=== PATIENT | male | born 1965 | race Two or more races ===

== ENCOUNTER → 2017-01-20 | Outpatient (REF) | payer BC | LOC: M SMT 12:41 | PROVIDERS: ATTEND Nurse Practitioner Family | DX: R31.0 Gross hematuria (principal) ==

== ENCOUNTER → 2017-02-02 | Outpatient (CLI) | payer BC ==
[~2017-02-02] MED LIST: ISOVUE-370 76% 100ML VIAL (Q9967) As Ordered ONE
--- NOTE | 2017-02-03 04:04 | REP ---
Clinical: Gross hematuria. Technique: Axial precontrast, contrast enhanced, and delayed images of the abdomen and pelvis using 100 ml Isovue 370 intravenous contrast material with coronal and sagittal re-formations. Findings: Evaluation of the urinary tract system demonstrates a 1.9 cm simple upper pole right renal cyst. There is no evidence for nephroureterolithiasis, hydroureteronephrosis, perinephric stranding, or obvious urinary tract mass lesion. Enhanced and delayed images demonstrate symmetric renal enhancement and excretion into the collecting system, respectively. Fatty infiltration to the liver noted without focal hepatic lesion. Spleen, pancreas, gallbladder, bilateral adrenal glands are normal. The enteric system is without obstruction or acute inflammatory process. Sigmoid diverticula noted without acute diverticulitis. Normal terminal ileum and appendix identified in the right lower quadrant. Pelvis demonstrates normal bladder and age appropriate prostate/seminal vesicles. No ascites. No adenopathy. No free air. The vasculature is normal. Surrounding musculoskeletal structures are intact without focal osseous abnormality. Impression: 1. 1.9 cm simple right upper pole renal cyst. Urinary tract system is otherwise normal. 2. Sigmoid diverticula without acute diverticulitis. 3. No further acute abdominopelvic pathology appreciated Signed by Abhijit Lopez MD 02/03/2017 03:55 A
== END ==
LOC: M RAD 15:52
PROVIDERS: ATTEND Nurse Practitioner Family
DX: R31.0 Gross hematuria (principal); N28.1 Cyst of kidney, acquired; K57.30 Diverticulosis of large intestine without perforation or abscess without bleeding
CPT/HCPCS: 74178; Q9967

== ENCOUNTER → 2017-03-24 | Outpatient (CLI) | payer BC ==
[~2017-03-24] MED LIST changes: +HYDR12CA PO; -ISOVUE-370 76% 100ML VIAL (Q9967) As Ordered ONE; +LISI-538 PO
--- NOTE | 2017-03-25 02:59 | REP ---
Clinical: Preoperative assessment . Bladder cancer. Comparison: 07/30/2011 . Technique: PA and lateral. Findings: The mediastinum and cardiac silhouette are normal. Airway is patent and midline. The lung myles are clear and without acute consolidation, effusion, or pneumothorax. The skeletal structures are intact and normal. Impression: 1. No acute cardiopulmonary process. Signed by Abhijit Lopez MD 03/25/2017 02:50 A
== END ==
LOC: M SMT 13:07
PROVIDERS: ATTEND Urology
DX: Z01.818 Encounter for other preprocedural examination (principal); D49.4 Neoplasm of unspecified behavior of bladder

== ENCOUNTER → 2017-04-01 | Outpatient (CLI) | payer BC ==
--- NOTE | 2017-04-01 17:23 | REP ---
REASON: History of bladder carcinoma. COMPARISON 03/24/2017. There is no significant change from the prior exam. The lung myles are hypo expanded causing crowding of the basilar vascularity. No acute patchy parenchymal opacities or pleural effusions have developed. The heart is not enlarged. The osseous structures are stable and intact. IMPRESSION: No evidence of significant change or acute cardiopulmonary disease as described above. Signed by Mike Mccarthy DO 04/01/2017 05:46 P
[2017-04-01 17:36] LABS: MEAN CORPUSCULAR HEMOGLOBIN 30.8 pg (27.0-33.0); MEAN CORPUSCULAR HGB CONC 34.9 g/dl (32.0-36.5); MEAN CORPUSCULAR VOLUME 88.3 fl (80.0-96.0); WHITE BLOOD COUNT 8.5 K/mm3 (4.0-10.0)
[2017-04-01 17:46] LABS: INR 0.99
[2017-04-01 19:45] LABS: ANION GAP 10 MEQ/L (8-16); BLOOD UREA NITROGEN 16 MG/DL (7-18); CALCIUM LEVEL 8.9 MG/DL (8.5-10.1); CARBON DIOXIDE LEVEL 28 MEQ/L (21-32); CHLORIDE LEVEL 103 MEQ/L (98-107); CREATININE FOR GFR 0.97 MG/DL (0.70-1.30); GLOMERULAR FILTRATION RATE > 60.0 (>56); GLUCOSE, FASTING 127 MG/DL (70-105); POTASSIUM SERUM 3.9 MEQ/L (3.5-5.1); SODIUM LEVEL 141 MEQ/L (136-145)
== END ==
LOC: M SMT 14:57
PROVIDERS: ATTEND Urology
DX: D49.4 Neoplasm of unspecified behavior of bladder (principal); Z01.818 Encounter for other preprocedural examination; N39.0 Urinary tract infection, site not specified; Z85.51 Personal history of malignant neoplasm of bladder

== ENCOUNTER 2017-04-08 09:12 | Day surgery (SDC) | payer BC ==
[~2017-04-08] VITALS: Ht 170.2 cm; Wt 122.5 kg
[2017-04-08] MEDS ORDERED: LR 1,000 ML IV ONE (09:45)
[2017-04-08] MEDS ORDERED: LevoFLOXacin IV 500 MG in APPROPRIATE DILUENT 1 EA IV ONE (09:45)
[2017-04-08] MEDS ORDERED: ONDANSETRON 4MG/2ML VIAL (J2405) As Ordered ONE (10:17)
[2017-04-08] MEDS ORDERED: PROPOFOL 200 MG/20 ML VIAL As Ordered ONE (10:17)
[2017-04-08] MEDS ORDERED: LIDOCAINE 2% INJ 100 MG/5 ML SDV (FOR ANES.) As Ordered ONE (10:17)
[2017-04-08] MEDS ORDERED: fentaNYL 100 MCG/2 ML INJECTION (J3010) As Ordered ONE (10:17)
[2017-04-08] MEDS ORDERED: MIDAZOLAM INJ 2 MG/2 ML VIAL (J2250) As Ordered ONE (10:17)
[2017-04-08] MEDS ORDERED: fentaNYL 100 MCG/2 ML INJECTION (J3010) IV PRN (12:30)
[2017-04-08] MEDS ORDERED: ONDANSETRON 4MG/2ML VIAL (J2405) IV PRN (12:30)
[2017-04-08] MEDS ORDERED: LR 1,000 ML IV SCH (12:30)
[2017-04-08] MEDS ORDERED: PERCOCET 5MG/325MG TAB PO PRN (12:30)
[2017-04-08] MEDS ORDERED: ACETAMINOPHEN TAB 650MG DOSE (2X325MG) PO PRN (12:45)
[2017-04-08 13:40] VITALS: BP 141/94
--- NOTE | 2017-04-10 09:45 | RO ---
DATE OF PROCEDURE: 04/08/2017 PREPROCEDURE DIAGNOSIS: Prostatic urethral mass. POSTPROCEDURE DIAGNOSIS: Prostatic urethral mass. PROCEDURE: Cystoscopy, transurethral resection of the prostatic ureteral mass. SURGEON: Dr. Armen Ibarra. [employer]NS[employer]: None. ANESTHESIA: General. OPERATIVE INDICATIONS: This is a 51-year-old male who was found to have a papillary-appearing lesion growing on the stalk on office cystoscopy. This was growing within his prostatic urethra. It was recommended he brought to the operating room today for the above listed procedure. DESCRIPTION OF PROCEDURE: The patient was brought to the operating room and general anesthesia was induced. Prophylactic antibiotics were infused. He was then placed in the dorsal lithotomy position and prepped and draped in the usual sterile fashion. The cystoscope was inserted through the urethral meatus and advanced to the bladder. Once this was in the bladder, it was examined and the bladder looked normal. Within the prostatic urethra, the papillary mass was seen growing around the stalk at 1-o'clock position. We then utilized the resectoscope to resect the lesion completely and that was removed from the bladder to be sent off for pathology. We then utilized the coagulation current to cauterize the area of resection until there was excellent hemostasis. The bladder was emptied of all fluid and this marked the conclusion of the procedure. The patient was then taken out of the dorsal lithotomy position, awakened from anesthesia and transported to the recovery room in stable condition. ESTIMATED BLOOD LOSS: 300 mL COMPLICATIONS: None. SPECIMENS: Prostatic urethral mass. PLAN: The patient will followup in the clinic next week for pathology results. TOÑO
== END 2017-04-08 13:40 | disposition home or self-care (01) ==
LOC: M SDC 09:12
PROVIDERS: ATTEND Urology
DX: N32.9 Bladder disorder, unspecified (principal); I10 Essential (primary) hypertension; Z88.0 Allergy status to penicillin; Z79.899 Other long term (current) drug therapy; E66.9 Obesity, unspecified
CPT/HCPCS: 52224; 88305; J1956; J2250; J2405; J3010

== ENCOUNTER → 2017-05-05 | Outpatient (REF) | payer BC | LOC: M SMT 15:16 | PROVIDERS: ATTEND Urology | DX: R30.0 Dysuria (principal) ==

== ENCOUNTER → 2019-10-25 | Outpatient (REF) | LOC: M LAB 09:52 | PROVIDERS: ATTEND Nurse Practitioner Adult Health | DX: Z02.89 Encounter for other administrative examinations (principal) ==

== ENCOUNTER → 2020-10-01 | Outpatient (CLI) | payer OTHER ==
[~2020-10-01] MED LIST changes: -LISI-538 PO; +LISI20TA33 PO
--- NOTE | 2020-10-01 13:38 | REP ---
INDICATION: LEFT KNEE PAIN. COMPARISON: None. TECHNIQUE: AP, lateral, tunnel and sunrise views of the left knee. FINDINGS: Moderate/early advanced tricompartmental osteoarthritic degenerative changes are appreciated primarily involving the medial compartment. Findings include periarticular sclerosis, joint space narrowing, and osteophytosis. No evidence for acute or healed injury. No obvious effusion. IMPRESSION: Moderate/early advanced tricompartmental arthritic changes primarily involving the medial compartment. <Electronically signed by Abhijit Lopez > 10/01/20 [id number]
== END ==
LOC: M SOG 08:10
PROVIDERS: ATTEND Orthopaedic Surgery Sports Medicine
DX: M23.332 Other meniscus derangements, other medial meniscus, left knee (principal); M17.12 Unilateral primary osteoarthritis, left knee

== ENCOUNTER 2020-12-15 17:24 | Emergency (ER) | payer OTHER, MEDICAID ==
[~2020-12-15] VITALS: Ht 170.2 cm; Wt 135.5 kg
[2020-12-15] MEDS ORDERED: ATOR1TAB21 PO (17:35)
[2020-12-15] MEDS ORDERED: METF-838 PO (17:35)
[2020-12-15] MEDS ORDERED: CIPR250T3 PO (17:35)
[2020-12-15 18:10] LABS: HEMATOCRIT 44.8 % (42.0-52.0); HEMOGLOBIN 15.5 g/dl (13.5-17.5); MEAN CORPUSCULAR HEMOGLOBIN 30.6 pg (27.0-33.0); MEAN CORPUSCULAR HGB CONC 34.6 g/dl (32.0-36.5); MEAN CORPUSCULAR VOLUME 88.4 fl (80.0-96.0); PLATELET COUNT, AUTOMATED 220 10^3/uL (150-450); RED BLOOD COUNT 5.07 10^6/uL (4.30-6.10)
[2020-12-15] MEDS ORDERED: NS 1,000 ML IV ONE (18:10)
[2020-12-15 18:23] LABS: WHITE BLOOD COUNT 12.8 10^3/uL (4.0-10.0)
[2020-12-15 18:25] LABS: ATYPICAL LYMPH 4 % (0-5); BASOPHILS 1 % (0-1); EOSINOPHILS 1 % (0-3); LYMPHOCYTES 11 % (16-44); MONOCYTES 13 % (0-5); NEUTROPHILS 70 % (28-66); PLATELET CLUMPS SMALL AMT; PLATELET ESTIMATE NORMAL (NORMAL)
[2020-12-15 18:37] LABS: BILIRUBIN,DIRECT 0.2 MG/DL (0.0-0.2); BILIRUBIN,TOTAL 0.6 MG/DL (0.2-1.0); TOTAL PROTEIN 7.5 GM/DL (6.4-8.2)
[2020-12-15 18:42] LABS: APPEARANCE, URINE CLEAR (CLEAR); BACTERIA, URINE AUTO NEGATIVE (NEGATIVE); BILIRUBIN, URINE AUTO NEGATIVE (NEGATIVE); BLOOD, URINE BLOOD 1+ (NEGATIVE); COLOR, URINE YELLOW (YELLOW); GLUCOSE, URINE (UA) AUTO NEGATIVE (NEGATIVE); KETONE, URINE AUTO NEGATIVE (NEGATIVE); LEUKOCYTE ESTERASE, URINE AUTO NEGATIVE (NEGATIVE); MUCUS, URINE SMALL (NEGATIVE); NITRITE, URINE AUTO NEGATIVE (NEGATIVE); PROTEIN, URINE AUTO NEGATIVE (NEGATIVE); RBC, URINE AUTO 1 /HPF (0-3); SPECIFIC GRAVITY URINE AUTO 1.014 (1.002-1.035); SQUAMOUS EPITHELIAL CELL UR AU 0 /HPF (0-6); UROBILINOGEN, URINE AUTO 0.2 mg/dL (0.0-2.0); WBC, URINE AUTO 0 /HPF (0-3)
[2020-12-15 18:58] LABS: CALCIUM LEVEL 9.3 MG/DL (8.5-10.1); CREATININE FOR GFR 1.91 MG/DL (0.70-1.30); GLOMERULAR FILTRATION RATE 38.9 (>56)
[2020-12-15] MEDS ORDERED: KETOROLAC 30 MG/ML 1ML VIAL IV ONE (19:05)
--- NOTE | 2020-12-15 20:12 | REPVR ---
PROCEDURE INFORMATION: Exam: CT Abdomen And Pelvis Without Contrast Exam date and time: 12/15/2020 6:35 PM Age: 55 years old Clinical indication: Abdominal pain; Flank; Left; Additional info: Left flank pain TECHNIQUE: Imaging protocol: Computed tomography of the abdomen and pelvis without contrast. Radiation optimization: All CT scans at this facility use at least one of these dose optimization techniques: automated exposure control; mA and/or kV adjustment per patient size (includes targeted exams where dose is matched to clinical indication); or iterative reconstruction. COMPARISON: CT ABD PELVIS W/O FOL BY WIT 02/02/2017 4:08 PM FINDINGS: Lungs: Clear appearing lung bases. Heart: Normal-sized heart. Liver: Normal appearing liver. Gallbladder and bile ducts: Normal appearing gallbladder. Pancreas: Normal appearing pancreas. Spleen: Normal appearing spleen. Normal appearing spleen. Adrenal glands: Normal appearing adrenal glands. Kidneys and ureters: There are 2 punctate nonobstructive stones right kidney. There is a 5 mm calcified stone in the mid to lower left ureter causing high-grade obstruction with moderate left hydronephrosis. There is some swelling of the left kidney and stranding increased density in the left pararenal space. This is consistent with obstruction and extravasation of urine. Superimposed pyelonephritis may also be present. Stomach and bowel: There are numerous diverticula throughout the colon but no evidence of diverticulitis. Appendix: The appendix appears within the range of normal. Intraperitoneal space: There is no evidence of pneumoperitoneum. Vasculature: The aorta is normal in size and there is mild atherosclerotic calcified plaque. Lymph nodes: In there is no evidence of lymphadenopathy. Urinary bladder: Normal urinary bladder. Reproductive: Normal-sized prostate. Bones/joints: L5-S1: There is mild broad-based bulge of the disc. L4-L5: There is mild broad-based bulge of the disc. L3-L4: There is moderate broad-based disc protrusion/osteophyte complex causing moderate impression on the thecal sac. L2-L3 there is moderate broad-based disc protrusion/osteophyte complex causing moderate impression on the thecal sac. Soft tissues: There is no evidence of soft tissue abnormality. There is a umbilical hernia measuring 3 cm with protrusion of only fat. IMPRESSION: There is a 5 mm calcified stone mid to lower left ureter causing high-grade obstruction with moderate left hydronephrosis. There is swelling of the left kidney and increased density surrounding the left kidney probably secondary to obstruction and extravasation of urine. Pyelonephritis could also be present. Electronically signed by: Sourav Rodríguez On 12/15/2020 20:12:30 PM
[2020-12-15] MEDS ORDERED: NORCO 5/325MG TABLET (BULK FOR ED) PO ONE (20:35)
[2020-12-15] MEDS ORDERED: FLOM0.4C39 PO (20:38)
[2020-12-15] MEDS ORDERED: ONDA4TAB6 PO (20:38)
[2020-12-15] MEDS ORDERED: MIRA3350 PO (20:38)
[2020-12-15] MEDS ORDERED: HYDR-3713 PO (20:38)
[2020-12-15 20:47] VITALS: BP 142/90
--- NOTE | 2020-12-16 10:11 | ED PDOC ---
Post-Departure Follow-Up radiology preor tfaxed to Angela Lamb MD Dec 16, 2020 10:11
== END 2020-12-15 20:59 | disposition home or self-care (01) ==
LOC: M ED 17:24
DX: N13.2 Hydronephrosis with renal and ureteral calculous obstruction (principal); R79.89 Other specified abnormal findings of blood chemistry; I10 Essential (primary) hypertension; E78.5 Hyperlipidemia, unspecified; E11.9 Type 2 diabetes mellitus without complications; Z79.899 Other long term (current) drug therapy; Z88.0 Allergy status to penicillin
CPT/HCPCS: 74176; 80047; 80048; 80076; 81001; 83690; 85025; 96361; 96374; 99284; J1885

== ENCOUNTER 2023-02-13 07:57 | Day surgery (SDC) | payer BC ==
[~2023-02-13] VITALS: Ht 170.2 cm; Wt 120.9 kg
[~2023-02-13 07:57] MED LIST changes: +ATOR1TAB21 PO; +CIPR250T3 PO; +FLOM0.4C39 PO; +HYDR-3490 PO; +HYDR-3713 PO; +METF-838 PO; +MIRA3350 PO; +NS 1,000 ML IV ONE; +ONDA4TAB6 PO; +OSTE5TAB PO; +RA T500C2 PO; +VITMTA PO
[2023-02-13] MEDS ORDERED: propofoL 500 MG/50 ML VIAL As Ordered ONE (10:05)
[2023-02-13] MEDS ORDERED: LIDOCAINE 2% 100MG/5ML SDV (FOR ANES.) As Ordered ONE (10:05)
[2023-02-13] MEDS ORDERED: propofoL 200 MG/20 ML VIAL As Ordered ONE (10:06)
[2023-02-13 10:52] VITALS: BP 171/79; TEMP 97.5; O2SAT 97
== END 2023-02-13 10:51 | disposition home or self-care (01) ==
LOC: M OPP 07:57
PROVIDERS: ATTEND Internal Medicine Gastroenterology
DX: Z12.11 Encounter for screening for malignant neoplasm of colon (principal); D12.0 Benign neoplasm of cecum; D12.2 Benign neoplasm of ascending colon; D12.4 Benign neoplasm of descending colon; K57.30 Diverticulosis of large intestine without perforation or abscess without bleeding; K64.8 Other hemorrhoids; Z79.02 Long term (current) use of antithrombotics/antiplatelets; Z79.84 Long term (current) use of oral hypoglycemic drugs; Z79.899 Other long term (current) drug therapy; Z88.0 Allergy status to penicillin

== ENCOUNTER → 2023-08-26 | Outpatient (CLI) | payer BC ==
[~2023-08-26] MED LIST changes: -NS 1,000 ML IV ONE
== END ==
LOC: M WUC 09:26
PROVIDERS: ATTEND Student in an Organized Health Care Education/Training Program
DX: S20.212A Contusion of left front wall of thorax, initial encounter (principal); X58.XXXA Exposure to other specified factors, initial encounter; Y92.9 Unspecified place or not applicable; Y93.9 Activity, unspecified; Y99.9 Unspecified external cause status

== ENCOUNTER → 2024-01-26 | Outpatient (CLI) | payer OTHER ==
[~2024-01-26] MED LIST changes: +ONDA-282 PO; -ONDA4TAB6 PO
== END ==
LOC: M SOG 08:03
PROVIDERS: ATTEND Physician Assistant
DX: M25.561 Pain in right knee (principal); M25.562 Pain in left knee; M17.0 Bilateral primary osteoarthritis of knee

== ENCOUNTER 2024-08-09 10:57 | Day surgery (SDC) | payer OTHER ==
[~2024-08-09] VITALS: Ht 170.2 cm; Wt 122.5 kg
[~2024-08-09 10:57] MED LIST changes: +ASPI81TA26 PO; +EZET10TA21 PO; +MELO15TA28 PO; +THERTAB52 PO
[2024-08-09] MEDS ORDERED: LR 1,000 ML IV SCH (11:10)
[2024-08-09] MEDS ORDERED: ONDANSETRON 4MG 2ML VIAL As Ordered ONE (11:29)
[2024-08-09] MEDS ORDERED: SUGAMMADEX SODIUM 500 MG/5 ML VIAL (BRIDION) As Ordered ONE (11:29)
[2024-08-09] MEDS ORDERED: LIDOCAINE 2% 100MG/5ML SDV (FOR ANES.) As Ordered ONE (11:29)
[2024-08-09] MEDS ORDERED: propofoL 200 MG/20 ML VIAL As Ordered ONE (11:29)
[2024-08-09] MEDS ORDERED: ROCURONIUM BROMIDE 50MG/5ML VIAL As Ordered ONE (11:29)
[2024-08-09] MEDS ORDERED: fentaNYL 100 MCG/2 ML INJECTION As Ordered ONE (11:30)
[2024-08-09] MEDS ORDERED: MIDAZOLAM INJ 2MG/2ML VIAL As Ordered ONE (11:30)
[2024-08-09] MEDS: CelecoXIB 400 MG CAP PO ONE (11:48)
[2024-08-09] MEDS: ceFAZolin SOD 2 GM in IV 1 EA IV ONE (12:35)
[2024-08-09] MEDS: ceFAZolin SOD 1 GM in DEXTROSE 5% (D5W) ADV/MINI-BAG 50 ML IV ONE (12:35)
[2024-08-09] MEDS ORDERED: HYDROmorphone HCL 2MG/ML 1ML VIAL As Ordered ONE (13:42)
[2024-08-09] MEDS: LIDOCAINE 1% SDV 30ML VIAL As Ordered ONE (14:19)
[2024-08-09] MEDS ORDERED: fentaNYL 100 MCG/2 ML INJECTION IV PRN (14:30)
[2024-08-09] MEDS ORDERED: ONDANSETRON 4MG 2ML VIAL IV PRN (14:30)
[2024-08-09] MEDS ORDERED: oxyCODONE 5MG TAB PO PRN (14:30)
[2024-08-09 15:50] VITALS: BP 156/84; TEMP 97; O2SAT 96
[2024-08-09] MEDS ORDERED: NORCO, ANEXSIA 5/325MG TABLET (HYDROcodone/ACETAMINOPHEN) PO PRN ×2 (16:45)
== END 2024-08-09 16:26 | disposition home or self-care (01) ==
LOC: M SDC 10:57
PROVIDERS: ATTEND Surgery
DX: K42.0 Umbilical hernia with obstruction, without gangrene (principal); E66.01 Morbid (severe) obesity due to excess calories; E11.9 Type 2 diabetes mellitus without complications; E78.00 Pure hypercholesterolemia, unspecified; Z79.84 Long term (current) use of oral hypoglycemic drugs; Z79.899 Other long term (current) drug therapy; Z68.41 Body mass index [BMI] 40.0-44.9, adult
CPT/HCPCS: 49594; 93005; C1781; C9290; J0665; J0690; J1100; J1171; J2250; J2405; J3010; S2900

== ENCOUNTER → 2024-11-22 | Outpatient (CLI) | payer OTHER | LOC: M RAD 06:50 | PROVIDERS: ATTEND Physician Assistant | DX: S46.211A Strain of muscle, fascia and tendon of other parts of biceps, right arm, initial encounter (principal); X58.XXXA Exposure to other specified factors, initial encounter; Y92.9 Unspecified place or not applicable; Y93.9 Activity, unspecified; Y99.9 Unspecified external cause status ==

== ENCOUNTER → 2024-12-02 | Outpatient (REF) | payer OTHER ==
[2024-12-02 13:26] LABS: HEPATITIS B SURFACE ANTIGEN NEGATIVE (NEGATIVE)
[2024-12-02 13:46] LABS: HEPATITIS C VIRUS ABY INDEX 0.04 INDEX (<0.8)
== END ==
LOC: M LAB REF 12:09
PROVIDERS: ATTEND Internal Medicine
DX: Z13.89 Encounter for screening for other disorder (principal); K75.81 Nonalcoholic steatohepatitis (NASH)

== ENCOUNTER → 2025-05-30 | Outpatient (CLI) | payer OTHER ==
[~2025-05-30] MED LIST changes: -EZET10TA21 PO; +EZET10TA57 PO; -FLOM0.4C39 PO; +HYDR12.510 PO; -HYDR12CA PO; -RA T500C2 PO; +TAMS-18 PO; +TURM500C10 PO
== END ==
LOC: M SOG 08:07
PROVIDERS: ATTEND Physician Assistant
DX: M25.561 Pain in right knee (principal); M25.562 Pain in left knee; M17.0 Bilateral primary osteoarthritis of knee

== ENCOUNTER → 2025-06-29 | Outpatient (CLI) | payer OTHER | LOC: M RAD 07:22 | PROVIDERS: ATTEND Internal Medicine | DX: K76.89 Other specified diseases of liver (principal); K74.00 Hepatic fibrosis, unspecified ==

== ENCOUNTER → 2025-07-11 | Outpatient (CLI) | payer OTHER | LOC: M SOG 07:47 | PROVIDERS: ATTEND Physician Assistant | DX: M16.11 Unilateral primary osteoarthritis, right hip (principal) ==